=== PATIENT | female | born 1980 | race Caucasian/White ===

== ENCOUNTER 2017-09-12 17:48 | Emergency (ER) | END 2017-09-12 20:43 | disposition home or self-care (01) ==

== ENCOUNTER 2018-02-23 18:24 | Emergency (ER) | END 2018-02-23 21:12 | disposition home or self-care (01) ==

== ENCOUNTER 2018-10-06 13:54 | Emergency (ER) | payer MEDICAID ==
[~2018-10-06] VITALS: Ht 170.2 cm; Wt 68.0 kg
[~2018-10-06 13:54] MED LIST: OMEP20CA9 PO
[2018-10-06 14:15] VITALS: BP 133/71; PULSE 85; RESP 18; Ht 170.2 cm; Wt 68.0 kg
[2018-10-06] MEDS ORDERED: AZIT250T PO (15:04)
[2018-10-06] MEDS ORDERED: PSEU-79 PO (15:04)
[2018-10-06] MEDS ORDERED: PROM6.2515 PO (15:04)
[2018-10-06] MEDS ORDERED: BENZ-6 PO (15:04)
--- NOTE | 2018-10-06 15:28 | ERD ---
ER Documentation Chief Complaint Chief Complaint COUGH WITH FEVER/CHILLS/NAUSEA/VOMITING HPI 38-year-old female presenting with cough and congestion. Patient has had tactile fevers. Last took ibuprofen 9 hours prior to my evaluation. Denies medical problems. Allergy to penicillin. Surgical history denies. Social history denies. ROS All systems reviewed and are negative except as per history of present illness. Medications Home Meds Active Scripts Promethazine Hcl* (Promethazine Hcl* Syrup) 6.25 Mg/5 Ml Syrup, 6.25 MG PO Q6H PRN for COUGH, #100 ML Prov:ESE FOUNTAIN PA-C 10/06/18 Benzonatate* (Tessalon Perle*) 100 Mg Capsule, 100 MG PO Q8H PRN for COUGH, #30 CAP Prov:ESE FOUNTAIN PA-C 10/06/18 Pseudoephedrine Hcl* (Suphedrin*) 30 Mg Tablet, 30 MG PO Q6 PRN for CONGESTION, #30 TAB Prov:ESE FOUNTAIN PA-C 10/06/18 Azithromycin* (Zithromax*) 250 Mg Tablet, 250 MG PO .ZPACK DIRECTED, #6 TAB TAKE 500 MG (2 TABS) THE FIRST DAY THEN 250 MG (1 TAB) DAYS 2-5 Prov:ESE FOUNTAIN PA-C 10/06/18 Reported Medications Omeprazole* (Prilosec*) 20 Mg Capsule.dr, 1 CAP PO BID 05/11/13 Allergies Allergies: Coded Allergies: Penicillins (Verified Allergy, Severe, 02/23/18) Uncoded Allergies: PENICILLIN (Allergy, Severe, 05/11/13) PMhx/Soc History of Surgery: Yes (C SEC X'S 1) Anesthesia Reaction: No Hx Neurological Disorder: No Hx Respiratory Disorders: No Hx Cardiac Disorders: No Hx Psychiatric Problems: No Hx Miscellaneous Medical Probl: Yes (GASTRITIS) Hx Alcohol Use: No Hx Substance Use: No Hx Tobacco Use: No Smoking Status: Never smoker FmHx Family History: No diabetes, No coronary disease, No other Physical Exam Vitals Vital Signs Date Temp Pulse Resp B/P (MAP) Pulse Ox O2 O2 Flow FiO2 Time Delivery Rate 10/06/18 98.2 85 18 133/71 96 14:15 (91) Physical Exam GENERAL: The patient is well-appearing, well-nourished, in no acute distress HEENT: Atraumatic. Conjunctivae are pink. Pupils equal, round, and reactive to light. There is no scleral icterus. Tympanic membranes clear bilaterally. Oropharynx clear. Congestion noted NECK: C-spine is soft and supple. There is no meningismus. There is no cervical lymphadenopathy. CHEST: Clear to auscultation bilaterally. There are no rales, wheezes or rhonchi. HEART: Regular rate and rhythm. No murmurs, clicks, rubs or gallops. ABDOMEN:Soft, nontender and nondistended. Good bowel sounds. No rebound or guarding. No gross peritonitis. No gross organomegaly or masses. Procedures/MDM DM: 38-year-old female presents with cough and congestion. Patient was discharged with supportive medications. I have low suspicion for pneumonia. I have low suspicion for meningitis or sepsis. Patient is discharged with strict ER precautions and told to follow-up with primary care within 1 to 2 days for close evaluation. Patient is told symptoms change or worsen to return immediately to the ER. All questions answered at discharge Departure Diagnosis: Primary Impression: Cough Condition: Stable Patient Instructions: Cough, Chronic, Uncertain Cause, (Adult), Uri, Viral, No Abx (Adult) Referrals: [facility] YOU HAVE RECEIVED A MEDICAL SCREENING EXAM AND THE RESULTS INDICATE THAT YOU DO NOT HAVE A CONDITION THAT REQUIRES URGENT TREATMENT IN THE EMERGENCY DEPARTMENT. FURTHER EVALUATION AND TREATMENT OF YOUR CONDITION CAN WAIT UNTIL YOU ARE SEEN IN YOUR DOCTORS OFFICE WITHIN THE NEXT 1-2 DAYS. IT IS YOUR RESPONSIBILITY TO MAKE AN APPOINTMENT FOR FOLOW-UP CARE. IF YOU HAVE A PRIMARY DOCTOR --you should call your primary doctor and schedule an appointment IF YOU DO NOT HAVE A PRIMARY DOCTOR YOU CAN CALL OUR PHYSICIAN REFERRAL HOTLINE AT IF YOU CAN NOT AFFORD TO SEE A PHYSICIAN YOU CAN CHOSE FROM THE FOLLOWING [facility] [address] [facility] [address] [facility] [address] [facility] [address] [facility]. [facility] [address] [facility]. [facility] [address] Additional Instructions: FOLLOW UP WITH YOUR PRIMARY CARE PHYSICIAN TOMORROW.Return to this facility if you are not improving as expected. ESE FOUNTAIN PA-C October 06, 2018 15:28
== END 2018-10-06 15:35 | disposition home or self-care (01) ==
LOC: FTE 13:54
DX: R05 Cough (principal)
CPT/HCPCS: 99283